=== PATIENT | female | born 1940 | race Caucasian/White ===

== ENCOUNTER → 2016-05-25 | Day surgery (SDC) | payer MEDICARE, OTHER ==
[2016-05-19 11:40] VITALS: BMI 23.5
[~2016-05-25] MED LIST: BSS 500 ml-Vancomycin 10 mg-Phenylephrine 1 mg Irrigation IR ONE; CHONDROITIN SULFATE 0.5 ML/PFS INTRAOC ONE; DEXAMETHASONE 4 MG/ML VIAL IV PRN; DIAZEPAM 5 MG TAB PO PRN; FENTANYL 100 MCG/2 ML VIAL ONE; Hyaluronate Sodium (Provisc) 5.5 mg/0.55 ml syringe INTRAOC ONE; LABETALOL 20 MG/4 ML SYRINGE IV PRN; MIDAZOLAM 2 MG/2 ML VIAL ONE; ONDANSETRON HCL 4 MG/2 ML VIAL IV PRN; PHENYLEPHRINE 2.5% OPHTH SOLN 2 ML BOT OP EYE ONE; SCOPOLAMINE TRANSDERMAL PATCH TOP ONE; TETRACAINE 0.5% 2 ML OPHTH SOLN OP EYE ONE; TETRACAINE 0.5% 2 ML OPHTH SOLN OP EYE PRN; TROPICAMIDE 1% OPHTH SOLN 2 ML BOTTLE OP EYE ONE; Vancomycin 10 MG, Phenylephrine 1,000 MCG in Balanced Salt Solution 500 ML IO ONE; hydrALAZINE 20 MG/ML VIAL IV PRN
--- NOTE | 2016-05-25 08:41 | SC.ANESEVA ---
Anesthesia Eval & Plan ([facility]) - Providers Stated Procedure: LEFT EYE CATARACT SURGERY Surgeon:: Paula Coulter - Medications/Allergies Allergies: Allergies No Known Allergies Allergy (Unverified 11/24/12 11:41) Per physician order sheet Home Medications: Home Medication List Amlodipine Besylate 10 mg PO DAILY 05/19/16 [History] Amlodipine Besylate [Norvasc] 10 mg PO DAILY 05/19/16 [History] Aspirin 81 mg PO DAILY 05/19/16 [History] Calcium/D3/K/FA/B12/C/Minerals [Ortho-Tabs] 1 each PO DAILY 05/19/16 [History] Multivit-Min/Iron Fum/Folic AC [Comra-Uzmamxs-Kjortgkp Tablet] 1 each PO DAILY 05/19/16 [History] Omeprazole 40 mg PO DAILY 05/19/16 [History] Pravastatin Sodium 40 mg PO HS 05/19/16 [History] Current Medication List: Reviewed - Focused Physical Exam NPO since: Since after Midnight Mallampati: Class I Thyromental Distance: Greater than 3 Neck: Full Range of Motion Dental: Normal - no significant findings Cardiovascular/Chest: Normal (RRR no mumurs or rubs.) Respiratory: Lungs clear. negative: Wheezing Any problems with anesthesia, including nausea and vomiting?: No Any relatives with a history of Malignant Hyperthermia?: No Prone to Motion Sickness: No Other: Diagnoses AGE-RELATED NUCLEAR CATARACT, LEFT EYE (05/25/16) Allergies Allergy/AdvReac Type Severity Reaction Status Date / Time No Known Allergies Allergy Unverified 11/24/12 11:41 Home Medications Medication Instructions Recorded Last Taken Type Amlodipine Besylate 10 mg PO DAILY 05/19/16 Unknown History Amlodipine Besylate [Norvasc] 10 mg PO DAILY 05/19/16 Unknown History Aspirin 81 mg PO DAILY 05/19/16 Unknown History Calcium/D3/K/FA/B12/C/Minerals 1 each PO DAILY 05/19/16 Unknown History [Ortho-Tabs] Multivit-Min/Iron Fum/Folic AC 1 each PO DAILY 05/19/16 Unknown History [Xbken-Etmhzlw-Thacyrhz Tablet] Omeprazole 40 mg PO DAILY 05/19/16 Unknown History Pravastatin Sodium 40 mg PO HS 05/19/16 Unknown History Height and Weight Patient's height 5 ft Patient's weight 54.55 kg Weight (Calculated Kilograms) 54.550 BMI 23.5 - Anesthetic Plan Anesthesia Type: MAC ASA Class: 3 - Focused Review of Systems Cardiac History: Yes: Hx Hypertension, Hx Abnormal Cholesterol/Hyperlipidemia Gastrointestinal: Yes: Hx Gastroesophageal Reflux Disease, Hx Colonoscopy Smoking Status: Never smoker Other Surgical History: bladder tack
[2016-05-25 09:54] VITALS: TEMP 97.4
[2016-05-25 10:02] VITALS: BP 157/93; PULSE 64
--- NOTE | 2016-05-25 10:26 | SC.ANESPOS ---
Post-Anesthesia Note LOC: Fully Awake Post-Anesthesia Assessment: Awake, Returned to Baseline, Hemodynamically Stable , Pain Control Adequate Phase I & II Recovery Complete: Yes Apparent Anesthesia Complication: No : N - Vital Signs Blood Pressure: 157/93 Pulse: 64 Resp Rate: 16 O2 Sat: 93 Temp: 97.4 F
--- NOTE | 2016-05-25 10:38 | HIMOPRPT ---
DATE OF PROCEDURE: 05/25/16 PREOPERATIVE DIAGNOSIS: Cataract Left eye. POSTOPERATIVE DIAGNOSIS: Cataract Left eye. PROCEDURE: Cataract extraction by phacoemulsification of the Left eye SURGEON: Paula Coulter MD. ANESTHESIA: IV Sedation/Topical. COMPLICATIONS: None. PRE-OPERATIVE EVALUATION: The patient has been examined and deemed medically stable for cataract extraction with no apparent need for inpatient observation; outpatient setting is appropriate. Patient appears to be oriented to time, place and person. PROCEDURE IN DETAIL: The correct eye confirmed by patient, doctor, staff and paperwork. The operative eye was then marked by the doctor in the preoperative area. Eye drops were instilled into the operative eye to dilate the pupil. The patient was transported to the operating room and was placed in the supine position. A time out was performed before the beginning of the procedure. The operative eye was prepped and draped in the usual sterile fashion for ophthalmic surgery, taking care to isolate the lashes from the surgical field. Topical anesthetic drops were instilled into the operative eye. A lid speculum was placed. Betadine 5% was instilled in the operative eye for antiseptic. Microscope was brought into place for use throughout the case. The eye was inspected. A paracentesis incision was created with a side port knife. The temporal limbal corneal incision was performed with a ynes blade. Viscoelastic was injected into the anterior chamber. Capsule forceps were used to create a capsulorhexis. Hydrodissection was performed with BSS. The nucleus was removed by phacoemulsification. Phaco time is noted below. The remaining cortical material was removed by I&A. The capsular bag was noted to be intact and distended with viscoelastic. The Intraocular lens was placed into the intact bag and centered without difficulty. The remaining viscoelastic was removed by I&A. Betadine 5% drops were placed to inspect wound and for antisepsis. Inspection revealed watertight wounds. The lid speculum was removed. Postoperative medications were instilled into the eye and a shield secured over the operative eye. IOL Type [id number] 006 IOL Power 20.0 CDE 4.34 Discharge Summary: There were no complications and the patient was taken to the postoperative area in good condition. Postoperative instructions and outpatient follow up time were given.
== END ==
LOC: CPSC 08:01
PROVIDERS: ATTEND Ophthalmology
PROC: 08RK3JZ Replacement of Left Lens with Synthetic Substitute, Percutaneous Approach (ICD-10-PCS; principal; 2016-05-25 09:30)
DX: H25.12 Age-related nuclear cataract, left eye (principal); I10 Essential (primary) hypertension; E78.5 Hyperlipidemia, unspecified; K21.9 Gastro-esophageal reflux disease without esophagitis; M81.0 Age-related osteoporosis without current pathological fracture; M19.90 Unspecified osteoarthritis, unspecified site; Z79.899 Other long term (current) drug therapy
CPT/HCPCS: 66984; A9270; J2250; J3010; V2632; J3490